=== PATIENT | male | born 1965 | race Caucasian/White ===

== ENCOUNTER 2017-02-04 16:25 | Emergency (ER) | payer MEDICARE ==
[2017-02-04 17:09] LABS: APPEARANCE CLEAR (CLEAR); BILIRUBIN NEGATIVE (NEGATIVE); COLOR YELLOW (YELLOW); GLUCOSE 250 mg/dL (NEGATIVE); KETONE NEGATIVE (NEGATIVE); NITRITE NEGATIVE (NEGATIVE); PROTEIN NEGATIVE (NEGATIVE); SPECIFIC GRAVITY 1.015 (1.005-1.020); UROBILINOGEN NORMAL (NORMAL)
[2017-02-04 17:21] LABS: UDS - AMPHET NEGATIVE QUAL (NEGATIVE); UDS - BARB NEGATIVE QUAL (NEGATIVE); UDS - BENZO NEGATIVE QUAL (NEGATIVE); UDS - COCAINE NEGATIVE QUAL (NEGATIVE); UDS - OPIATE NEGATIVE QUAL (NEGATIVE); UDS - PCP NEGATIVE QUAL (NEGATIVE); UDS - THC NEGATIVE QUAL (NEGATIVE)
[2017-02-04 17:36] LABS: BASOPHILS 0.3 % (0-2); EOSINOPHILS 2.3 % (0-7); HEMATOCRIT 40.8 % (42.0-54.0); IMMATURE GRANULOCYTES 0.8 % (0-5); LYMPHOCYTES 32.4 % (15-50); MCH 31.1 pg (26.0-34.0); MCHC 34.3 g/dL (31.0-37.0); MCV 90.7 fL (80.0-100.0); MEAN PLATELET VOLUME 10.6 fL (7.4-10.4); MONOCYTES 13.1 % (2-11); NEUTROPHILS 51.1 % (40-80); RDW 12.4 % (11.5-14.5); WBC 7.9 10x3/uL (4.8-10.8)
[2017-02-04 17:43] LABS: PLATELET COUNT 205 10x3/uL (130-400)
[2017-02-04 17:59] LABS: ALBUMIN 3.3 g/dL (3.4-5.0); ALKALINE PHOSPHATASE 88 U/L (46-116); ALT (SGPT) 18 U/L (10-68); BILIRUBIN - TOTAL 0.21 mg/dL (0.2-1.3); CALC OSMOLALITY 273 mosm/kg (275-300); CALCIUM 9.5 mg/dL (8.5-10.1); CARBON DIOXIDE 24.8 mmol/L (21.0-32.0); CHLORIDE - SERUM 103 mmol/L (98-107); GLUCOSE 159 mg/dL (74-106); PROTEIN - SERUM 6.9 g/dL (6.4-8.2); SODIUM 136 mmol/L (136-145); UREA NITROGEN 9 mg/dL (7-18); eGFR NON AFRICAN AMERICAN 83 mL/min (90-120)
[2017-02-18 10:36] VITALS: BMI 29.0
== END 2017-02-04 21:00 | disposition short-term general hospital (02) ==
LOC: D.ER 16:25
PROVIDERS: Emergency Medicine
DX: Z86.59 Personal history of other mental and behavioral disorders (principal); F17.200 Nicotine dependence, unspecified, uncomplicated

== ENCOUNTER 2017-02-17 15:07 | Inpatient (IN) | payer MEDICARE ==
[~2017-02-17] VITALS: Ht 182.9 cm; Wt 86.6 kg
--- NOTE | ~2017-02-17 | CN ---
PATIENT NAME:OLE KELLY MEDICAL RECORD: [id number] : 63 LOCATION:D[id number] ADMIT DATE: 02/17/17 ACCOUNT: [id number] CONSULTING PHYSICIAN: FLORESITA POSEY MD REFERRING PHYSICIAN: LUISANA GUO MD DATE OF CONSULTATION: 02/17/2017 CHIEF COMPLAINT: Bowel obstruction. HISTORY OF PRESENT ILLNESS: I saw the patient and examined him. The patient is complaining of diffuse abdominal distention. He has either an ileus or bowel obstruction on x-ray. The patient is a poor historian. Nothing aggravates. Nothing alleviates. The patient has been at a local facility, having his medications, his psychiatric medications adjusted. This is a consultation note addendum. For the typed portion of the consult note, please see the chart. This will include the past medical and surgical history, current medications, allergies, social history as well as family history. REVIEW OF SYSTEMS: Unreliable in this patient due to his psychiatric state. PHYSICAL EXAMINATION: GENERAL: The patient does not appear acutely ill. He does appear chronically ill. EARS: External ears appear normal. EYES: Extraocular movements are intact. NECK: Trachea is midline. CHEST: No intercostal retractions. PULMONARY: Nonlabored, no stridor. ABDOMEN: Nontender, doughy, mildly distended. EXTREMITIES: No peripheral cyanosis. INTEGUMENT: No rash, no ulcerations. PSYCHIATRIC: Flat affect. NEUROLOGIC: Answers some questions. There is some evidence of loss of higher cortical function. IMPRESSION: Ileus versus small bowel obstruction. PLAN: Small bowel follow through. TRANSINT:[id number] Voice Confirmation ID: [id number] DOCUMENT ID: [id number] FLORESITA POSEY MD at 0938 CC: [id number] DICTATION DATE: 02/22/17 1049 EMERGENCY MANAGEMENT DIRECTOR: 02/22/17 1430 DIS IN 02/22/17 [place] [id number] [place] [id number]
--- NOTE | ~2017-02-17 | CN ---
PATIENT NAME:OLE KELLY MEDICAL RECORD: [id number] : 63 LOCATION:D[id number] ADMIT DATE: 02/17/17 ACCOUNT: [id number] CONSULTING PHYSICIAN: FLORESITA POSEY MD REFERRING PHYSICIAN: LUISANA GUO MD DATE OF CONSULTATION: 02/17/2017 CHIEF COMPLAINT: Abdominal pain. HISTORY: The patient has abdominal distention, some abdominal tenderness as well. He has some warner on his abdomen, which appear to be from a magic marker and he cannot explain how these got there. He is a very poor historian. He is not sure if he has ever had an operation on his abdomen or not. He states that he thinks he had a hernia when he was a child. I note no abdominal wall hernias. I note no abdominal incisions. The patient is currently at [facility] and states that he is having his psychotropic medicines adjusted. Like I said, he can give me almost no past history. This is a consultation note addendum. Palpation of the abdomen does not necessarily make things worse. As a matter of fact, he states that it makes him feel better. Nothing alleviates other than shaking his abdomen. There is no peritonitis upon examination. I note no groin hernias. I note no incarcerated umbilical hernia. A CT scan is pending. This is a consultation note addendum. For the typed portion of the consult note, please see the chart. This would include past medical and surgical history, allergies, social history, current medications, and family history. REVIEW OF SYSTEMS: Positive for abdominal distention. No abdominal pain. The patient states he has had some diarrhea recently. The review of systems is negative other than as is described above. PHYSICAL EXAMINATION: GENERAL: The patient appears acutely ill. Also appears chronically ill. VITAL SIGNS: Reviewed. EARS: External ears appear normal. EYES: Extraocular movements are intact. NECK: Trachea is midline. CHEST: No intercostal retractions. PULMONARY: Nonlabored. No stridor. ABDOMEN: As described above. : No incarcerated inguinal hernias. PSYCHIATRIC: Abnormal affect. NEUROLOGIC: Somewhat confused. Poor short- and long-term memory. BACK: No thoracic kyphosis. LYMPHATICS: No lymphangitic streaking of the exposed extremities. IMPRESSION: Ileus versus small bowel obstruction versus pseudoobstruction. I would be more in favor of an ileus or pseudoobstruction. PLAN: I have discussed this case with Dr. Soni. The patient is to be admitted to Dr. Guo, who is the patient's primary care physician. I will be seeing the patient in consultation. I will order a small bowel follow through for the patient. CONSULT REPORT [id number] OLE KELLY TRANSINT:[id number] Voice Confirmation ID: [id number] DOCUMENT ID: [id number] FLORESITA POSEY MD at 0938 CC: [id number] DICTATION DATE: 02/17/171718 CANARY RAISER: 02/18/17 0141 DIS IN 02/22/17 [facility] [address] [place] [address]
[2017-02-17 16:44] LABS: BASOPHILS 0.1 % (0-2); EOSINOPHILS 0.1 % (0-7); HEMOGLOBIN 16.3 g/dL (13.5-17.5); IMMATURE GRANULOCYTES 0.6 % (0-5); LYMPHOCYTES 6.3 % (15-50); MCH 31.3 pg (26.0-34.0); MCHC 34.7 g/dL (31.0-37.0); MCV 90.2 fL (80.0-100.0); MONOCYTES 5.9 % (2-11); PLATELET COUNT 238 10x3/uL (130-400); RBC 5.21 10x6/uL (4.20-6.10); RDW 12.3 % (11.5-14.5); WBC 16.4 10x3/uL (4.8-10.8)
[2017-02-17 16:58] LABS: ALBUMIN 3.6 g/dL (3.4-5.0); ANION GAP 13.2 mmol/L (8-16); BILIRUBIN - TOTAL 0.42 mg/dL (0.2-1.3); CALCIUM 10.8 mg/dL (8.5-10.1); CARBON DIOXIDE 25.3 mmol/L (21.0-32.0); CREATININE - SERUM 1.2 mg/dL (0.6-1.3); POTASSIUM - SERUM 4.5 mmol/L (3.5-5.1); PROTEIN - SERUM 7.7 g/dL (6.4-8.2)
[2017-02-17 21:43] LABS: APPEARANCE CLEAR (CLEAR); BILIRUBIN NEGATIVE (NEGATIVE); COLOR DK YELLOW (YELLOW); GLUCOSE 100 mg/dL (NEGATIVE); KETONE SMALL mg/dL (NEGATIVE); NITRITE NEGATIVE (NEGATIVE); PROTEIN TRACE mg/dL (NEGATIVE); SPECIFIC GRAVITY 1.025 (1.005-1.020); UROBILINOGEN NORMAL (NORMAL)
[2017-02-18] VITALS (8 sets, daily range): BP systolic 118–142; BP diastolic 76–93; Ht 182.9 cm; Wt 86.6 kg
[2017-02-18] MEDS ORDERED: LEVOTHYROXINE125 MCG PO (02:40)
[2017-02-18] MEDS ORDERED: PROPRANOLOL HCL20 MG PO (02:40)
[2017-02-18] MEDS ORDERED: RISPERDAL2 MG PO (02:40)
[2017-02-18] MEDS ORDERED: FLOMAX0.4 MG PO (02:42)
[2017-02-18] MEDS ORDERED: GLUCOPHAGE1000 MG PO (02:44)
[2017-02-18] MEDS ORDERED: NIASPAN1000 MG PO (02:44)
[2017-02-18] MEDS ORDERED: TRICOR145 MG PO (02:44)
[2017-02-18] MEDS ORDERED: CLOZARIL100 MG PO ×2 (02:45→02:46)
[2017-02-18] MEDS ORDERED: JANUVIA100 MG PO (02:45)
[2017-02-18] MEDS ORDERED: LANTUS INSULIN10 ML SC (02:47)
[2017-02-18] MEDS ORDERED: ENULOSE10 G/15 ML PO (02:48)
[2017-02-18] MEDS ORDERED: FOLIC ACID1 MG PO (02:49)
[2017-02-18] MEDS ORDERED: FERREX PO (02:52)
[2017-02-19] VITALS (9 sets, daily range): BP systolic 97–159; BP diastolic 69–88
[2017-02-19 07:56] LABS: BASOPHILS 0.1 % (0-2); EOSINOPHILS 1.4 % (0-7); HEMATOCRIT 39.8 % (42.0-54.0); HEMOGLOBIN 13.3 g/dL (13.5-17.5); IMMATURE GRANULOCYTES 1.4 % (0-5); LYMPHOCYTES 19.8 % (15-50); MCH 30.6 pg (26.0-34.0); MCHC 33.4 g/dL (31.0-37.0); MCV 91.5 fL (80.0-100.0); MEAN PLATELET VOLUME 10.7 fL (7.4-10.4); MONOCYTES 14.5 % (2-11); NEUTROPHILS 62.8 % (40-80); PLATELET COUNT 222 10x3/uL (130-400); RBC 4.35 10x6/uL (4.20-6.10); RDW 12.5 % (11.5-14.5)
[2017-02-19 08:10] LABS: CALCIUM 9.3 mg/dL (8.5-10.1); CARBON DIOXIDE 27.8 mmol/L (21.0-32.0); CHLORIDE - SERUM 106 mmol/L (98-107); SODIUM 141 mmol/L (136-145); UREA NITROGEN 18 mg/dL (7-18); eGFR NON AFRICAN AMERICAN 83 mL/min (90-120)
[2017-02-19 08:11] LABS: WBC 9.8 10x3/uL (4.8-10.8)
[2017-02-19 08:12] LABS: CALC OSMOLALITY 286 mosm/kg (275-300); GLUCOSE 170 mg/dL (74-106); POTASSIUM - SERUM 3.3 mmol/L (3.5-5.1)
[2017-02-20] VITALS: BP 120/78
[2017-02-20 06:31] LABS: BASOPHILS 0.3 % (0-2); EOSINOPHILS 1.6 % (0-7); HEMOGLOBIN 12.3 g/dL (13.5-17.5); IMMATURE GRANULOCYTES 1.3 % (0-5); LYMPHOCYTES 29.5 % (15-50); MCH 30.2 pg (26.0-34.0); MCHC 33.2 g/dL (31.0-37.0); MCV 90.9 fL (80.0-100.0); MEAN PLATELET VOLUME 10.9 fL (7.4-10.4); MONOCYTES 12.9 % (2-11); NEUTROPHILS 54.4 % (40-80); PLATELET COUNT 221 10x3/uL (130-400); RBC 4.07 10x6/uL (4.20-6.10); RDW 12.8 % (11.5-14.5); WBC 7.7 10x3/uL (4.8-10.8)
[2017-02-20 07:11] LABS: CALC OSMOLALITY 291 mosm/kg (275-300); CALCIUM 9.1 mg/dL (8.5-10.1); CARBON DIOXIDE 24.2 mmol/L (21.0-32.0); CHLORIDE - SERUM 110 mmol/L (98-107); CREATININE - SERUM 0.8 mg/dL (0.6-1.3); GLUCOSE 171 mg/dL (74-106); POTASSIUM - SERUM 3.1 mmol/L (3.5-5.1); SODIUM 145 mmol/L (136-145); eGFR NON AFRICAN AMERICAN > 90 mL/min (90-120)
[2017-02-20 07:13] LABS: UREA NITROGEN 9 mg/dL (7-18)
[2017-02-20 08:34] VITALS: BP 126/75
[2017-02-20 12:05] VITALS: BP 115/80
[2017-02-20 16:17] VITALS: BP 114/83
[2017-02-20 22:01] VITALS: BP 119/75
[2017-02-21] VITALS (7 sets, daily range): BP systolic 119–163; BP diastolic 83–667
[2017-02-21 05:53] LABS: BASOPHILS 0.1 % (0-2); EOSINOPHILS 2.1 % (0-7); HEMATOCRIT 37.5 % (42.0-54.0); HEMOGLOBIN 12.6 g/dL (13.5-17.5); IMMATURE GRANULOCYTES 1.6 % (0-5); LYMPHOCYTES 29.7 % (15-50); MCH 30.7 pg (26.0-34.0); MCHC 33.6 g/dL (31.0-37.0); MCV 91.2 fL (80.0-100.0); MEAN PLATELET VOLUME 10.7 fL (7.4-10.4); MONOCYTES 13.4 % (2-11); NEUTROPHILS 53.1 % (40-80); PLATELET COUNT 219 10x3/uL (130-400); RBC 4.11 10x6/uL (4.20-6.10); RDW 12.8 % (11.5-14.5); WBC 7.5 10x3/uL (4.8-10.8)
[2017-02-21 06:28] LABS: CALCIUM 9.1 mg/dL (8.5-10.1); CARBON DIOXIDE 24.4 mmol/L (21.0-32.0); CHLORIDE - SERUM 111 mmol/L (98-107); CREATININE - SERUM 0.8 mg/dL (0.6-1.3); GLUCOSE 163 mg/dL (74-106); SODIUM 145 mmol/L (136-145); eGFR NON AFRICAN AMERICAN > 90 mL/min (90-120)
[2017-02-21 06:30] LABS: CALC OSMOLALITY 290 mosm/kg (275-300); POTASSIUM - SERUM 3.7 mmol/L (3.5-5.1); UREA NITROGEN 6 mg/dL (7-18)
[2017-02-22 04:29] VITALS: BP 147/89
[2017-02-22 08:44] VITALS: BP 143/87
[2017-02-22 12:34] VITALS: BP 150/83
[2017-02-22] MEDS ORDERED: INDERAL10 MG PO (13:39)
[2017-02-22] MEDS ORDERED: CLOZARIL100 MG PO (13:42)
== END 2017-02-22 15:30 | disposition home or self-care (01) | DRG 390 ==
LOC: D.ER 15:07 → D.M3 20:23 → D.MS 20:23
PROVIDERS: Emergency Medicine; Family Medicine
PROC: 0D9670Z Drainage of Stomach with Drainage Device, Via Natural or Artificial Opening (ICD-10-PCS; principal; 2017-02-17)
DX: K56.600 Partial intestinal obstruction, unspecified as to cause (principal); F20.9 Schizophrenia, unspecified; E11.9 Type 2 diabetes mellitus without complications; I95.1 Orthostatic hypotension; K21.9 Gastro-esophageal reflux disease without esophagitis; M06.9 Rheumatoid arthritis, unspecified

== ENCOUNTER 2017-03-09 16:59 | Emergency (ER) | payer MEDICARE ==
[2017-02-18 10:36] VITALS: BMI 29.0
[~2017-03-09 16:59] MED LIST: CLOZARIL100 MG PO; ENULOSE10 G/15 ML PO; FERREX PO; FLOMAX0.4 MG PO; FOLIC ACID1 MG PO; GLUCOPHAGE1000 MG PO; INDERAL10 MG PO; JANUVIA100 MG PO; LANTUS INSULIN10 ML SC; LEVOTHYROXINE125 MCG PO; NIASPAN1000 MG PO; PROPRANOLOL HCL20 MG PO; RISPERDAL2 MG PO; TRICOR145 MG PO
[2017-03-09 17:40] LABS: BASOPHILS 0.3 % (0-2); EOSINOPHILS 2.3 % (0-7); HEMATOCRIT 36.7 % (42.0-54.0); HEMOGLOBIN 12.4 g/dL (13.5-17.5); LYMPHOCYTES 25.4 % (15-50); MCH 30.2 pg (26.0-34.0); MCHC 33.8 g/dL (31.0-37.0); MCV 89.3 fL (80.0-100.0); MONOCYTES 13.3 % (2-11); NEUTROPHILS 57.7 % (40-80); PLATELET COUNT 227 10x3/uL (130-400); RBC 4.11 10x6/uL (4.20-6.10); WBC 7.3 10x3/uL (4.8-10.8)
[2017-03-09 17:57] LABS: ALKALINE PHOSPHATASE 85 U/L (46-116); ALT (SGPT) 15 U/L (10-68); CALC OSMOLALITY 276 mosm/kg (275-300); CHLORIDE - SERUM 105 mmol/L (98-107); GLUCOSE 151 mg/dL (74-106); PROTEIN - SERUM 6.5 g/dL (6.4-8.2); SODIUM 138 mmol/L (136-145); UREA NITROGEN 7 mg/dL (7-18); eGFR NON AFRICAN AMERICAN 83 mL/min (90-120)
[2017-03-09 18:08] LABS: APPEARANCE CLEAR (CLEAR); BILIRUBIN NEGATIVE (NEGATIVE); COLOR YELLOW (YELLOW); GLUCOSE 100 mg/dL (NEGATIVE); KETONE NEGATIVE (NEGATIVE); NITRITE NEGATIVE (NEGATIVE); PROTEIN NEGATIVE (NEGATIVE); UROBILINOGEN NORMAL (NORMAL)
== END 2017-03-09 17:45 | disposition home or self-care (01) ==
LOC: D.ER 16:59
PROVIDERS: Emergency Medicine
DX: B34.9 Viral infection, unspecified (principal); E11.9 Type 2 diabetes mellitus without complications

== ENCOUNTER 2017-03-26 16:45 | Emergency (ER) | payer MEDICARE | END 2017-03-26 23:36 | disposition home or self-care (01) | LOC: D.ER 16:45 | DX: J06.9 Acute upper respiratory infection, unspecified (principal); R53.1 Weakness ==

== ENCOUNTER → 2017-04-07 13:33 | Outpatient (CLI) | payer MEDICARE, MEDICAID ==
[2017-02-18 10:36] VITALS: BMI 29.0
[2017-04-07 14:45] LABS: CALC OSMOLALITY 275 mosm/kg (275-300); CALCIUM 9.3 mg/dL (8.5-10.1); CARBON DIOXIDE 26.6 mmol/L (21.0-32.0); CHLORIDE - SERUM 103 mmol/L (98-107); POTASSIUM - SERUM 4.4 mmol/L (3.5-5.1); SODIUM 135 mmol/L (136-145); UREA NITROGEN 11 mg/dL (7-18); eGFR NON AFRICAN AMERICAN 83 mL/min (90-120)
[2017-04-07 14:47] LABS: GLUCOSE 226 mg/dL (74-106)
== END | disposition home or self-care (01) ==
LOC: D.LAB 13:33
PROVIDERS: Family Medicine
DX: K72.91 Hepatic failure, unspecified with coma (principal)

== ENCOUNTER 2017-04-29 06:04 | Emergency (ER) | payer MEDICARE, MEDICAID ==
[2017-02-18 10:36] VITALS: BMI 29.0
[2017-04-29 06:39] LABS: BASOPHILS 0.3 % (0-2); EOSINOPHILS 1.3 % (0-7); HEMATOCRIT 40.7 % (42.0-54.0); HEMOGLOBIN 13.4 g/dL (13.5-17.5); IMMATURE GRANULOCYTES 0.4 % (0-5); LYMPHOCYTES 19.1 % (15-50); MCH 29.7 pg (26.0-34.0); MCHC 32.9 g/dL (31.0-37.0); MCV 90.2 fL (80.0-100.0); MEAN PLATELET VOLUME 9.7 fL (7.4-10.4); MONOCYTES 9.8 % (2-11); NEUTROPHILS 69.1 % (40-80); PLATELET COUNT 265 10x3/uL (130-400); RBC 4.51 10x6/uL (4.20-6.10); RDW 14.1 % (11.5-14.5); WBC 7.7 10x3/uL (4.8-10.8)
[2017-04-29 06:49] LABS: APPEARANCE CLEAR (CLEAR); BILIRUBIN NEGATIVE (NEGATIVE); COLOR YELLOW (YELLOW); GLUCOSE NEGATIVE (NEGATIVE); KETONE NEGATIVE (NEGATIVE); NITRITE NEGATIVE (NEGATIVE); PROTEIN NEGATIVE (NEGATIVE); SPECIFIC GRAVITY 1.015 (1.005-1.020); UROBILINOGEN NORMAL (NORMAL)
[2017-04-29 06:50] LABS: BACTERIA FEW /hpf (NONE SEEN); EPITHELIAL CELLS 0-5 /hpf (0-5); HYALINE CAST 0-5 /lpf (NONE SEEN); MUCUS <1+ /lpf (NONE SEEN); RED CELLS - URINE 0-5 /hpf (0-5); WHITE CELLS - URINE 0-5 /hpf (0-5)
[2017-04-29 06:53] LABS: UDS - AMPHET NEGATIVE QUAL (NEGATIVE); UDS - BARB NEGATIVE QUAL (NEGATIVE); UDS - BENZO NEGATIVE QUAL (NEGATIVE); UDS - COCAINE NEGATIVE QUAL (NEGATIVE); UDS - OPIATE NEGATIVE QUAL (NEGATIVE); UDS - PCP NEGATIVE QUAL (NEGATIVE); UDS - THC NEGATIVE QUAL (NEGATIVE)
[2017-04-29 07:05] LABS: ALBUMIN 3.3 g/dL (3.4-5.0); ALKALINE PHOSPHATASE 97 U/L (46-116); ALT (SGPT) 17 U/L (10-68); BILIRUBIN - TOTAL 0.55 mg/dL (0.2-1.3); CALC OSMOLALITY 281 mosm/kg (275-300); CALCIUM 9.3 mg/dL (8.5-10.1); CARBON DIOXIDE 23.1 mmol/L (21.0-32.0); CHLORIDE - SERUM 104 mmol/L (98-107); GLUCOSE 190 mg/dL (74-106); POTASSIUM - SERUM 3.6 mmol/L (3.5-5.1); PROTEIN - SERUM 7.8 g/dL (6.4-8.2); SODIUM 139 mmol/L (136-145); UREA NITROGEN 9 mg/dL (7-18); eGFR NON AFRICAN AMERICAN 83 mL/min (90-120)
== END 2017-04-29 12:51 | disposition short-term general hospital (02) ==
LOC: D.ER 06:04
PROVIDERS: Emergency Medicine
DX: F33.9 Major depressive disorder, recurrent, unspecified (principal); R45.851 Suicidal ideations; E11.9 Type 2 diabetes mellitus without complications; Z86.59 Personal history of other mental and behavioral disorders